=== PATIENT | male | born 1985 | race Native Hawaiian/Other Pacific Islander ===

== ENCOUNTER 2020-09-03 21:50 | Emergency (ER) | payer OTHER ==
[~2020-09-03] VITALS: Ht 167.6 cm; Wt 108.9 kg
[2020-09-03 22:02] VITALS: TEMP 98.1
[2020-09-03 22:41] LABS: PLATELET COUNT 284 K/uL (142-355)
[2020-09-03 22:50] LABS: POTASSIUM 4.1 mmol/L (3.6-5.2); SODIUM 140 mmol/L (136-145)
[2020-09-04 01:02] VITALS: BP 130/77
== END 2020-09-04 01:05 | disposition home or self-care (01) ==
LOC: ED 21:50
PROVIDERS: Family Medicine
DX: R07.89 Other chest pain (principal); Z20.822 Contact with and (suspected) exposure to COVID-19
CPT/HCPCS: 80053; 84484; 85027; 87635; 93005; 99283; U0003